=== PATIENT | female | born 1945 | race African-American/Black ===

== ENCOUNTER 2019-09-18 09:06 | Emergency (ER) | payer BC, MEDICAID, MEDICARE ==
[2019-09-18] MEDS ORDERED: Meclizine 25 MG Tab PO ONE (09:38)
[2019-09-18] MEDS ORDERED: Ondansetron 4 MG Tab.DIS PO ONE (09:38)
--- NOTE | 2019-09-18 10:34 | EDM.PDOC ---
ED HPI GENERAL MEDICAL PROBLEM - General Chief Complaint: General Stated Complaint: FAINTING LIGHTHEADED WEAK Time Seen by Provider: 09/18/19 09:10 Source of Information: Reports: Patient History Limitations: Reports: No Limitations - History of Present Illness INITIAL COMMENTS - FREE TEXT/NARRATIVE: Patient presented to the ED because of dizziness. She noticed that she gets dizzy when she stands. She is also feeling weak and tired most of the time. She had similar episode for the past year which resolved on it's own. - Related Data Allergies Allergy/AdvReac Type Severity Reaction Status Date / Time penicillin G Allergy Other Verified 09/18/19 10:24 Home Meds: Home Meds Meclizine HCl 25 mg PO Q6H PRN #30 tablet 09/18/19 [Rx] Past Medical History - Past Health History Medical/Surgical History: Denies Medical/Surgical History Social & Family History - Tobacco Use Smoking Status *Q: Never Smoker - Caffeine Use Caffeine Use: Reports: Coffee - Recreational Drug Use Recreational Drug Use: No ED ROS GENERAL - Review of Systems Review Of Systems: See Below Constitutional: Reports: No Symptoms HEENT: Reports: No Symptoms Respiratory: Reports: No Symptoms Cardiovascular: Reports: No Symptoms Endocrine: Reports: No Symptoms GI/Abdominal: Reports: No Symptoms : Reports: No Symptoms Musculoskeletal: Reports: No Symptoms Skin: Reports: No Symptoms Neurological: Reports: No Symptoms Psychiatric: Reports: No Symptoms Hematologic/Lymphatic: Reports: No Symptoms Immunologic: Reports: No Symptoms ED EXAM, GENERAL - Physical Exam Exam: See Below Exam Limited By: No Limitations General Appearance: Alert, No Apparent Distress Nose: Normal Inspection, Normal Mucosa Throat/Mouth: Normal Inspection, Normal Lips, Normal Teeth Head: Atraumatic, Normocephalic Neck: Normal Inspection, Supple, Non-Tender Respiratory/Chest: No Respiratory Distress, Lungs Clear, Normal Breath Sounds Cardiovascular: Normal Peripheral Pulses, Regular Rate, Rhythm, No Edema, No Gallop Back Exam: Normal Inspection, Full Range of Motion Extremities: Normal Inspection, Normal Range of Motion, Non-Tender, No Pedal Edema, Normal Capillary Refill Neurological: Alert, Oriented, CN II-XII Intact, Normal Cognition Psychiatric: Normal Affect, Normal Mood Skin Exam: Warm, Dry, Intact, Normal Color Lymphatic: No Adenopathy Course - Vital Signs Text/Narrative:: Labs/EKG was discussed with patient and verbalized full understanding Meclizine 50 mg PO x1 zofran 4 mg ODT x1 EKG-NSR Last Recorded V/S: Last Vital Signs Temp 36.7 C 09/18/19 10:30 Pulse 67 09/18/19 10:30 Resp 15 09/18/19 10:30 BP 164/95 H 09/18/19 10:30 Pulse Ox 99 09/18/19 10:30 - Orders/Labs/Meds Orders: Active Orders 24 hr Category Date Time Status EKG Documentation Completion [RC] ASDIRECTED Care 09/18/19 09:38 Active EKG 12 Lead [EK] Routine Ther 09/18/19 09:36 Ordered Labs: Laboratory Tests 09/18/19 09/18/19 09/18/19 Range/Units 09:55 09:55 09:55 WBC 7.9 (4.5-12.0) X10-3/uL RBC 5.14 (3.23-5.20) x10(6)uL Hgb 14.4 (11.5-15.5) g/dL Hct 42.9 (30.0-51.3) % MCV 83.4 (80-96) fL MCH 28.1 (27.7-33.6) pg MCHC 33.7 (32.2-35.4) g/dL RDW 13.0 (11.5-15.5) % Plt Count 233 (125-369) X10(3)uL MPV 7.7 (7.4-10.4) fL Add Manual Diff Yes Neutrophils % (Manual) 72 (46-82) % Lymphocytes % (Manual) 25 (13-37) % Monocytes % (Manual) 3 L (4-12) % Sodium 144 (135-145) mmol/L Potassium 4.9 (3.5-5.3) mmol/L Chloride 105 (100-110) mmol/L Carbon Dioxide 31 (21-32) mmol/L BUN 8 (7-18) mg/dL Creatinine 0.6 (0.55-1.02) mg/dL Est Cr Clr Drug Dosing 79.34 mL/min Estimated GFR (MDRD) > 60 (>60) BUN/Creatinine Ratio 13.3 (9-20) Glucose 95 (80-116) mg/dL Calcium 10.0 (8.6-10.2) mg/dL Troponin I < 0.017 L (<0.017-0.056) ng/mL Meds: Medications Discontinued Medications Generic Name Dose Route Start Last Admin Trade Name Armando PRN Reason Stop Dose Admin Meclizine HCl 50 mg 09/18/19 09:38 09/18/19 09:48 Antivert PO 09/18/19 09:39 50 mg ONETIME ONE Administration Ondansetron HCl 4 mg 09/18/19 09:38 09/18/19 09:48 Zofran Odt PO 09/18/19 09:39 4 mg ONETIME ONE Administration Departure - Departure Time of Disposition: 10:30 Disposition: Home, Self-Care 01 Condition: Good Clinical Impression: Vertigo - Discharge Information Prescriptions: Meclizine HCl 25 mg PO Q6H PRN #30 tablet PRN Reason: vertigo Instructions: Vertigo, [id number] Referrals: George Dee MD [Primary Care Provider] - Forms: ED Department Discharge Additional Instructions: please read discharge instructions on vertigo whenever you get up, do it slowly take meclizine 25 mg every 6 hours as needed for vertigo follow up with your field auditor-for a holter monitor and neurologist Sepsis Event Note - Evaluation Sepsis Screening Result: No Definite Risk - Focused Exam Vital Signs: Vital Signs Temp Pulse Resp BP Pulse Ox 09/18/19 10:30 36.7 C 67 15 164/95 H 99 09/18/19 09:06 36.7 C 70 15 179/88 H 100 Date Exam was Performed: 09/18/19 Time Exam was Performed: 15:53 - My Orders Last 24 Hours: My Active Orders 09/18/19 09:36 EKG 12 Lead [EK] Routine 09/18/19 09:38 EKG Documentation Completion [RC] ASDIRECTED - Assessment/Plan Last 24 Hours: My Active Orders 09/18/19 09:36 EKG 12 Lead [EK] Routine 09/18/19 09:38 EKG Documentation Completion [RC] ASDIRECTED
== END 2019-09-18 11:00 | disposition home or self-care (01) ==
LOC: FB.ED 09:06
DX: R42 Dizziness and giddiness (principal); Z88.0 Allergy status to penicillin
CPT/HCPCS: 36415; 80048; 84484; 85025; 93005; 93010; 99283; 99285; A9270

== ENCOUNTER 2020-09-23 08:56 | Emergency (ER) | payer MEDICARE ==
--- NOTE | 2020-09-23 09:55 | EDM.PDOC ---
ED HPI GENERAL MEDICAL PROBLEM - General Chief Complaint: General Stated Complaint: SOB AND DIAHREA Time Seen by Provider: 09/23/20 09:30 Source of Information: Reports: Patient History Limitations: Reports: No Limitations - History of Present Illness INITIAL COMMENTS - FREE TEXT/NARRATIVE: c/o weak and diarrhea 8d ago pt had sob at night, wheezing, said she could here her breath sounds breathing better altho still sob at times (PO 99% here) felt weak, "too tired to eat," will eat 1/2 of a meat pie and then is too tired to finish, will go sit in her chair to rest, says that here foot is good, just lacking energy denies lighthead/dizzy when on feet, altho walked very slowly to bathroom here no walker or can has soreness in her calves, no pain elsewhere, so swell of legs has had soft freq stool x 1w, usually formed, sometimes loose, BM x 3 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[employer], however she declined a tomorrow as she is too tired PCP Dr Dee has been drinking fluids, no caffeine - Related Data Allergies Allergy/AdvReac Type Severity Reaction Status Date / Time penicillin G Allergy Other Verified 09/18/19 10:24 Home Meds: Home Meds Meclizine HCl 25 mg PO Q6H PRN #30 tablet 09/18/19 [Rx] Past Medical History - Past Health History Medical/Surgical History: Denies Medical/Surgical History HEENT History: Reports: Impaired Vision Other HEENT History: right eye Genitourinary History: Reports: Urinary Incontinence - Past Surgical History Musculoskeletal Surgical History: Reports: Shoulder Surgery Other Musculoskeletal Surgeries/Procedures:: rotator cuff surgery Social & Family History - Tobacco Use Tobacco Use Status *Q: Never Tobacco User - Caffeine Use Caffeine Use: Reports: None - Recreational Drug Use Recreational Drug Use: No ED ROS GENERAL - Review of Systems Review Of Systems: See Below Constitutional: Reports: No Symptoms HEENT: Reports: No Symptoms Respiratory: Reports: Shortness of Breath. Denies: Cough, Sputum Cardiovascular: Reports: No Symptoms. Denies: Palpitations Endocrine: Reports: No Symptoms GI/Abdominal: Reports: Diarrhea. Denies: Abdominal Pain, Anorexia, Constipation, Nausea, Vomiting : Reports: No Symptoms Musculoskeletal: Reports: Leg Pain Skin: Reports: No Symptoms Neurological: Reports: No Symptoms Psychiatric: Reports: No Symptoms Hematologic/Lymphatic: Reports: No Symptoms Immunologic: Reports: No Symptoms ED EXAM, GENERAL - Physical Exam Exam: See Below Exam Limited By: No Limitations General Appearance: Alert, WD/WN, Other (nontoxic, nonill, appears weak, inc'd HR) Ears: Normal External Exam, Hearing Grossly Normal Nose: Normal Inspection, Normal Mucosa Throat/Mouth: Normal Inspection, Normal Voice, No Airway Compromise Head: Atraumatic, Normocephalic Neck: Normal Inspection, Supple, Non-Tender, Full Range of Motion. No: Lymphadenopathy (R), Lymphadenopathy (L) Respiratory/Chest: No Respiratory Distress, Lungs Clear, Normal Breath Sounds, Chest Non-Tender Cardiovascular: No Edema, No Gallop, No Murmur, Tachycardia, Other (regular) GI/Abdominal: Normal Bowel Sounds, Soft, Non-Tender, No Organomegaly, No Distention Back Exam: Normal Inspection, Full Range of Motion. No: CVA Tenderness (R), CVA Tenderness (L) Extremities: Normal Inspection, Normal Range of Motion, Other (mild tender calves b/l, no edema, no cords, no homans, mild dec'd turgor UEs, no tenting) Neurological: Alert, Oriented, CN II-XII Intact, Normal Cognition, No Motor/Sensory Deficits, Other (walked slowly with small steps, slightly wide based for balance) Psychiatric: Normal Affect, Normal Mood Skin Exam: Warm, Dry, Intact, Normal Color, No Rash Lymphatic: No Adenopathy Course - Vital Signs Last Recorded V/S: Last Vital Signs Temp 36.4 C 09/23/20 09:15 Pulse 110 H 09/23/20 11:33 Resp 18 09/23/20 09:15 BP 157/101 H 09/23/20 11:33 Pulse Ox 96 09/23/20 11:33 Orthostatic Blood Pressure [ 156/101 Standing] Orthostatic Blood Pressure [ 150/100 Sitting] Orthostatic Blood Pressure [ 165/104 Supine] - Orders/Labs/Meds Orders: Active Orders 24 hr Category Date Time Status EKG Documentation Completion [RC] ASDIRECTED Care 09/23/20 10:00 Ordered Orthostatic Vital Signs [RC] ASDIRECTED Care 09/23/20 10:01 Ordered COVID-19 SARS COV-2 AB, IGG Stat Lab 09/23/20 12:28 Ordered COVID-19 SARS COV-2 AB, IGM Stat Lab 09/23/20 12:28 Ordered EKG 12 Lead [EK] Routine Ther 09/23/20 09:58 Ordered Labs: Laboratory Tests 09/23/20 09/23/20 09/23/20 Range/Units 10:10 10:10 10:10 WBC 7.8 (3.0-10.3) x10-3/uL RBC 5.52 H (3.60-5.20) x10(6)uL Hgb 14.5 (11.4-15.5) g/dL Hct 45.3 (34.2-48.2) % MCV 82.0 (76.7-100.5) fL MCH 26.2 (23.9-33.9) pg MCHC 32.0 (31.9-34.8) g/dL RDW 14.3 (12.3-16.5) % Plt Count 377 (151-488) x10(3)uL MPV 7.5 (7.1-12.4) fL Neut % (Auto) 72.1 (30.8-76.2) % Lymph % (Auto) 20.7 (18.4-52.1) % [place] % (Auto) 6.1 (4.4-15.7) % Eos % (Auto) 0.3 L (0.6-8.1) % Baso % (Auto) 0.8 (0.2-1.5) % Neut # (Auto) 5.6 (1.5-6.3) x10-3/uL Lymph # (Auto) 1.6 (1.0-4.4) x10-3/uL [place] # (Auto) 0.5 (0.3-1.0) x10-3/uL Eos # (Auto) 0.0 (0.0-0.8) x10-3/uL Baso # (Auto) 0.1 (0.0-0.1) x10-3/uL D-Dimer, Quantitative 1.23 H (0.0-0.59) mg/LFEU Sodium 141 (135-145) mmol/L Potassium 3.6 D (3.5-5.3) mmol/L Chloride 101 (100-110) mmol/L Carbon Dioxide 29 (21-32) mmol/L BUN 10 (7-18) mg/dL Creatinine 0.9 (0.55-1.02) mg/dL Est Cr Clr Drug Dosing TNP Estimated GFR (MDRD) > 60 (>60) BUN/Creatinine Ratio 11.1 (9-20) Glucose 114 (80-116) mg/dL Lactic Acid (0.4-2.0) mmol/L Calcium 9.6 (8.6-10.2) mg/dL Magnesium (1.8-2.5) mg/dL Total Bilirubin 1.4 H (0.1-1.3) mg/dL AST 24 (5-25) IU/L ALT 15 (12-36) U/L Alkaline Phosphatase 113 H (56-112) IU/L Creatine Kinase 43 L (60-160) IU/L Troponin I (4.0-60.3) pg/mL C-Reactive Protein (0.5-0.9) mg/dL NT-Pro-B Natriuret Pep (<=125) pg/mL Total Protein 8.2 H (6.0-8.0) g/dL Albumin 4.4 (3.2-4.6) g/dL Globulin 3.8 g/dL Albumin/Globulin Ratio 1.2 Urine Color (YELLOW) Urine Appearance (CLEAR) Urine pH (5.0-6.5) Ur Specific [place] (1.010-1.025) Urine Protein (NEGATIVE) mg/dL Urine Glucose (UA) (NORMAL) mg/dL Urine Ketones (NEGATIVE) mg/dL Urine Occult Blood (NEGATIVE) Urine Nitrite (NEGATIVE) Urine Bilirubin (NEGATIVE) Urine Urobilinogen (NEGATIVE) mg/dL Ur Leukocyte Esterase (NEGATIVE) Urine WBC (0-5) Ur Squamous Epith Cells (NS,R,O) Urine Bacteria (NS) SARS-CoV-2 RNA (CESAR) (NEGATIVE) 09/23/20 09/23/20 09/23/20 Range/Units 10:10 10:10 10:10 WBC (3.0-10.3) x10-3/uL RBC (3.60-5.20) x10(6)uL Hgb (11.4-15.5) g/dL Hct (34.2-48.2) % MCV (76.7-100.5) fL MCH (23.9-33.9) pg MCHC (31.9-34.8) g/dL RDW (12.3-16.5) % Plt Count (151-488) x10(3)uL MPV (7.1-12.4) fL Neut % (Auto) (30.8-76.2) % Lymph % (Auto) (18.4-52.1) % [place] % (Auto) (4.4-15.7) % Eos % (Auto) (0.6-8.1) % Baso % (Auto) (0.2-1.5) % Neut # (Auto) (1.5-6.3) x10-3/uL Lymph # (Auto) (1.0-4.4) x10-3/uL [place] # (Auto) (0.3-1.0) x10-3/uL Eos # (Auto) (0.0-0.8) x10-3/uL Baso # (Auto) (0.0-0.1) x10-3/uL D-Dimer, Quantitative (0.0-0.59) mg/LFEU Sodium (135-145) mmol/L Potassium (3.5-5.3) mmol/L Chloride (100-110) mmol/L Carbon Dioxide (21-32) mmol/L BUN (7-18) mg/dL Creatinine (0.55-1.02) mg/dL Est Cr Clr Drug Dosing Estimated GFR (MDRD) (>60) BUN/Creatinine Ratio (9-20) Glucose (80-116) mg/dL Lactic Acid 1.1 (0.4-2.0) mmol/L Calcium (8.6-10.2) mg/dL Magnesium 1.9 (1.8-2.5) mg/dL Total Bilirubin (0.1-1.3) mg/dL AST (5-25) IU/L ALT (12-36) U/L Alkaline Phosphatase (56-112) IU/L Creatine Kinase (60-160) IU/L Troponin I 32.8 (4.0-60.3) pg/mL C-Reactive Protein 0.5 (0.5-0.9) mg/dL NT-Pro-B Natriuret Pep (<=125) pg/mL Total Protein (6.0-8.0) g/dL Albumin (3.2-4.6) g/dL Globulin g/dL Albumin/Globulin Ratio Urine Color (YELLOW) Urine Appearance (CLEAR) Urine pH (5.0-6.5) Ur Specific [place] (1.010-1.025) Urine Protein (NEGATIVE) mg/dL Urine Glucose (UA) (NORMAL) mg/dL Urine Ketones (NEGATIVE) mg/dL Urine Occult Blood (NEGATIVE) Urine Nitrite (NEGATIVE) Urine Bilirubin (NEGATIVE) Urine Urobilinogen (NEGATIVE) mg/dL Ur Leukocyte Esterase (NEGATIVE) Urine WBC (0-5) Ur Squamous Epith Cells (NS,R,O) Urine Bacteria (NS) SARS-CoV-2 RNA (CESAR) (NEGATIVE) 09/23/20 09/23/20 09/23/20 Range/Units 10:10 10:30 11:45 WBC (3.0-10.3) x10-3/uL RBC (3.60-5.20) x10(6)uL Hgb (11.4-15.5) g/dL Hct (34.2-48.2) % MCV (76.7-100.5) fL MCH (23.9-33.9) pg MCHC (31.9-34.8) g/dL RDW (12.3-16.5) % Plt Count (151-488) x10(3)uL MPV (7.1-12.4) fL Neut % (Auto) (30.8-76.2) % Lymph % (Auto) (18.4-52.1) % [place] % (Auto) (4.4-15.7) % Eos % (Auto) (0.6-8.1) % Baso % (Auto) (0.2-1.5) % Neut # (Auto) (1.5-6.3) x10-3/uL Lymph # (Auto) (1.0-4.4) x10-3/uL [place] # (Auto) (0.3-1.0) x10-3/uL Eos # (Auto) (0.0-0.8) x10-3/uL Baso # (Auto) (0.0-0.1) x10-3/uL D-Dimer, Quantitative (0.0-0.59) mg/LFEU Sodium (135-145) mmol/L Potassium (3.5-5.3) mmol/L Chloride (100-110) mmol/L Carbon Dioxide (21-32) mmol/L BUN (7-18) mg/dL Creatinine (0.55-1.02) mg/dL Est Cr Clr Drug Dosing Estimated GFR (MDRD) (>60) BUN/Creatinine Ratio (9-20) Glucose (80-116) mg/dL Lactic Acid (0.4-2.0) mmol/L Calcium (8.6-10.2) mg/dL Magnesium (1.8-2.5) mg/dL Total Bilirubin (0.1-1.3) mg/dL AST (5-25) IU/L ALT (12-36) U/L Alkaline Phosphatase (56-112) IU/L Creatine Kinase (60-160) IU/L Troponin I (4.0-60.3) pg/mL C-Reactive Protein (0.5-0.9) mg/dL NT-Pro-B Natriuret Pep 17496 H* (<=125) pg/mL Total Protein (6.0-8.0) g/dL Albumin (3.2-4.6) g/dL Globulin g/dL Albumin/Globulin Ratio Urine Color Yellow (YELLOW) Urine Appearance Clear (CLEAR) Urine pH 6.0 (5.0-6.5) Ur Specific [place] 1.010 (1.010-1.025) Urine Protein Negative (NEGATIVE) mg/dL Urine Glucose (UA) Normal (NORMAL) mg/dL Urine Ketones Negative (NEGATIVE) mg/dL Urine Occult Blood Negative (NEGATIVE) Urine Nitrite Negative (NEGATIVE) Urine Bilirubin Negative (NEGATIVE) Urine Urobilinogen Normal (NEGATIVE) mg/dL Ur Leukocyte Esterase Negative (NEGATIVE) Urine WBC 0-5 (0-5) Ur Squamous Epith Cells Occasional (NS,R,O) Urine Bacteria Few H (NS) SARS-CoV-2 RNA (CESAR) Negative (NEGATIVE) Meds: Medications Discontinued Medications Generic Name Dose Route Start Last Admin Trade Name Freq PRN Reason Stop Dose Admin Sodium Chloride 1,000 mls @ 999 mls/hr 09/23/20 10:00 09/23/20 10:39 Normal Saline IV 09/23/20 11:00 999 mls/hr .BOLUS ONE Administration Iopamidol 100 ml 09/23/20 11:53 09/23/20 12:05 Isovue-370 (76%) IV 09/23/20 11:54 100 ml . DIRECTED ONE Administration Iopamidol 75 ml 09/23/20 12:02 Isovue-370 (76%) IV 09/23/20 12:03 ONETIME ONE - Re-Assessments/Exams Free Text/Narrative Re-Assessment/Exam: 09/23/20 13:17 labs and imaging reviewed with pt and sig other Clemente (cell [phone]) who has known her for years and said he would try to stop the [facility] pus hosp later today d/w Dr Hernandez hospitalist at [facility] who accepted pt in transfer to their [facility], bed assignment pending, pt in agreement old EKG from 09-08-19 reviewed and d/w Dr Hernandez who was looking at a copy on his computer, there was a suggestion of possible early LVH (repolarization changes in V2) altho there is pronounced LVH with strain on today's EKG diff dx is extensive: includes COVID (Ab test test sent here, Dr Hernandez plans to do a more sensitive antigen test when she arrives), CAD, ischemic cardiomyopathy, other infections, pneumonia, COVID myocarditis, lung CA pt denies prior pul or CV hx, says the only time she might have had an NM is when she was alone at home, in bathroom, had n/v, passed out, awoke later on the bathroom floor, occurred about 1.5y ago, perhaps when the EKG was done in 08/31 there are no prior echos or CV w/u 09/23/20 13:26 never smoked daughter last year from sepsis, did not have heart or lung issues as far as pt knows pt's mother from a primary brain tumor pt is medically stable will add O2 for comfort, sxs and possible CAD pt did develop a slight nonproductive cough, had mild dyspnea sitting in chair will defer on diuretic as vazquez not indicated and pt is going to travel 50 minutes to [place] soon Departure - Departure Time of Disposition: 13:23 Disposition: DC/Tfer to Other 70 Condition: Good Clinical Impression: Heart failure, Bilateral pleural effusion, Bilateral pulmonary infiltrates on CXR, Dyspnea, Generalized weakness, Gait instability, Elevated d-dimer, Elevated total protein, Elevated brain natriuretic peptide (BNP) level, LVH (left ventricular hypertrophy) - Discharge Information *PRESCRIPTION DRUG MONITORING PROGRAM REVIEWED*: Not Applicable *COPY OF PRESCRIPTION DRUG MONITORING REPORT IN PATIENT SULEMA: Not Applicable Referrals: George Dee MD [Primary Care Provider] - Forms: ED Department Discharge Sepsis Event Note (ED) - Evaluation Sepsis Screening Result: No Definite Risk - Focused Exam Vital Signs: Vital Signs Temp Pulse Resp BP Pulse Ox 09/23/20 11:33 110 H 157/101 H 96 09/23/20 09:15 36.4 C 112 H 18 145/92 H 99 - My Orders Last 24 Hours: My Active Orders 09/23/20 09:58 EKG 12 Lead [EK] Routine 09/23/20 10:00 EKG Documentation Completion [RC] ASDIRECTED 09/23/20 10:01 Orthostatic Vital Signs [RC] ASDIRECTED 09/23/20 12:28 COVID-19 SARS COV-2 AB, IGG Stat COVID-19 SARS COV-2 AB, IGM Stat - Assessment/Plan Last 24 Hours: My Active Orders 09/23/20 09:58 EKG 12 Lead [EK] Routine 09/23/20 10:00 EKG Documentation Completion [RC] ASDIRECTED 09/23/20 10:01 Orthostatic Vital Signs [RC] ASDIRECTED 09/23/20 12:28 COVID-19 SARS COV-2 AB, IGG Stat COVID-19 SARS COV-2 AB, IGM Stat
[2020-09-23] MEDS ORDERED: Sodium Chloride 0.9% 1,000 ML IV ONE (10:00)
[2020-09-23] MEDS ORDERED: Iopamidol 755 Mg/ML 100 ML Bottle IV ONE (11:53)
[2020-09-23] MEDS ORDERED: Iopamidol 755 Mg/ML 75 ML Bottle IV ONE (12:02)
--- NOTE | 2020-09-23 12:06 | CR ---
INDICATION: Short of breath x1 week. CHEST ONE VIEW: An AP portable upright view of the chest was obtained 09/23/20 - no comparison. There is fairly extensive infiltration at the left lower lobe and also likely in the lingula with blunting of the costophrenic angle and obscuration of the left hemidiaphragm. Smaller amount of infiltrate is noted at the right lung base with blunting of the right costophrenic angle. The heart is enlarged in appearance with upper lung field pulmonary vasculature raising question of CHF. IMPRESSION: 1. Probable ASHD with cardiomegaly, CHF and possible interstitial lung edema. 2. Bibasilar pleuroparenchymal changes, left much greater than right which may be on the basis of pneumonia and pleuritis. Report was called to Dr. Way at 1137 hours. [facility]
--- NOTE | 2020-09-23 12:41 | CT ---
INDICATION: Short of breath, weak, increased D-dimer. CBC, CRP, COVID all negative. COMPUTERIZED TOMOGRAPHY ANGIOGRAPHY OF THE CHEST WITH CONTRAST: Spiral 1.25 mm axial sections were obtained through the chest with 75 mL Isovue-370 at 3 cc per second with sagittal and coronal reconstructions and axial reconstructions 09/23/20 - no comparisons. Total exam DLP was 318.83 mGy-cm. There appears to be a partially calcified mass at the lower pole posteriorly of the left lobe of the thyroid, etiology indeterminate. It extends into the thoracic inlet slightly. Otherwise no mediastinal mass was identified. Minimal coronary artery calcifications noted. The heart appears enlarged. No pericardial effusion was seen. Bilateral pleural effusions are noted, larger on the left with parenchymal changes, either atelectatic or pneumonic in origin - cannot exclude pneumonia or even neoplasia. The upper abdomen included on this study showed no evidence of ascites. IMPRESSION: 1. No definite evidence of PE. 2. Bibasilar pleuroparenchymal changes, left greater than right, pneumonia versus neoplasia - some atelectasis could be present - correlate clinically. 3. ASHD, cardiomegaly, probable CHF and interstitial lung edema. Report was called to Dr. Way at 1225 hours 09/23/20. [facility]
[2020-09-24 12:10] LABS: SARS COV-2 IGG AB Negative (Negative)
[2020-09-25 21:11] LABS: SARS COV-2 IGM AB Negative (Negative)
== END 2020-09-23 15:29 | disposition other institution (70) ==
LOC: FB.ED 08:56
DX: I50.9 Heart failure, unspecified (principal); J90 Pleural effusion, not elsewhere classified; R91.8 Other nonspecific abnormal finding of lung field; R26.9 Unspecified abnormalities of gait and mobility; R79.1 Abnormal coagulation profile; R79.89 Other specified abnormal findings of blood chemistry; I51.7 Cardiomegaly; Z88.0 Allergy status to penicillin
CPT/HCPCS: 36415; 71045; 71275; 80053; 81001; 82550; 83605; 83735; 83880; 84484; 85025; 85379; 86140; 86769; 93005; 99285; J7030; Q9967; U0002

== ENCOUNTER 2021-03-31 10:16 | Emergency (ER) | payer MEDICARE ==
--- NOTE | 2021-03-31 10:29 | EDM.PDOC ---
ED HPI GENERAL MEDICAL PROBLEM - General Stated Complaint: GTUBE LEAKAGE Time Seen by Provider: 03/31/21 10:27 Source of Information: Reports: Patient, Senior Care Records, RN (From [facility]) History Limitations: Reports: Altered Mental Status (Patient with previous stroke and cannot provide me with a laceration. She speaks in 1-2 word sentences and areas is mostly yes and no.) - History of Present Illness INITIAL COMMENTS - FREE TEXT/NARRATIVE: 75-year-old female who presents to the emergency department via POV from [facility] secondary to G-tube having gastric contents leaking around it. The patient tells me she has no pain. She states she has been having no difficulty breathing. She is aware that she is at [place] and her G-tube site has been leaking. She cannot really tell me any other formation. I did speak with Sarah, are in a [facility], and she tells me that for about the past few weeks, the patient has had intermittent episodes of vomiting of feeding tube contents. The patient apparently gets feedings through her G-tube at 55 mL per hour continuously and this weekend she did have an episode of vomiting in the had hold her tube feedings a few hours before restarting them and apparently this has happened since she has had the G-tube in several times but has always resolved. Patient is been having normal bowel movements. She really takes nothing orally. The patient did have a stroke that required her to be placed in the correction and in November 2020, she had had failure to thrive secondary to not being able to take by mouth and not really wanting to take by mouth and she had a G-tube placed on 11/26/2020. The G-tube has not been replaced since it was initially placed. The nurse also tells me that the patient has intermittent episodes of tachycardia and this has been her norm while she has been in the correction with pulse rates between 70 and 120 beats per minute. This weekend, there have been no reported fevers. The G-tube site did have some greenish-type drainage yesterday and then today it was noted by the nurse that there were G-tube contents around the G-tube that were leaking out. The patient did not appear to have any pain with palpation around the area and did appear to be intact. The patient is being sent to feeding leaking around the G-tube site. This is really only history that I can obtain. There are no other associated signs or symptoms known. There are no other modifying factors known. 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: Other (see below) (Nothing.) - Related Data Allergies Allergy/AdvReac Type Severity Reaction Status Date / Time penicillin G Allergy Other Verified 09/18/19 10:24 Home Meds: Home Meds Acetaminophen with Codeine [Acetaminophen-Cod #3] 1 each PO QID 03/31/21 [History] Bisacodyl [Laxative Suppository] 10 mg RECTAL DAILY PRN 03/31/21 [History] Ciprofloxacin 500 mg GTUBE BID 10 Days #100 ml 03/31/21 [Rx] Docusate Sodium 100 mg GTUBE DAILY 03/31/21 [History] Furosemide 20 mg PO ASDIRECTED 03/31/21 [History] Furosemide 40 mg GTUBE ASDIRECTED 03/31/21 [History] Gabapentin 300 mg GTUBE TID 03/31/21 [History] Mag Hydrox/Aluminum Hyd/Simeth [Lian-Lanta Liquid] 10 ml PO ASDIRECTED PRN 03/31/21 [History] Menthol/Methyl Salicylate [Icy Hot] 1 dose TOP DAILY 03/31/21 [History] Nut.tx.gluc Intol,Lf,Soy/Fiber [Glucerna 1.2 Jose De Jesus Liquid] 55 ml GTUBE DAILY 03/31/21 [History] Warfarin [Coumadin] 1 tab PO DAILY 03/31/21 [History] atorvaSTATin [Lipitor] 40 mg GTUBE DAILY 03/31/21 [History] carvediloL [Carvedilol] 6.25 mg GTUBE BEDTIME 03/31/21 [History] carvediloL [Carvedilol] 12.5 mg GTUBE DAILY 03/31/21 [History] metFORMIN [Glucophage] 500 mg GTUBE DAILY 03/31/21 [History] polyethylene glycoL 3350 [MiraLAX] 17 gm GTUBE DAILY PRN 03/31/21 [History] ramipriL [Ramipril] 2.5 mg GTUBE DAILY 03/31/21 [History] Past Medical History HEENT History: Reports: Impaired Vision Other HEENT History: right eye Cardiovascular History: Reports: Heart Failure, High Cholesterol, Hypertension Genitourinary History: Reports: Urinary Incontinence Neurological History: Reports: CVA Endocrine/Metabolic History: Reports: Diabetes, Type II - Past Surgical History GI Surgical History: Reports: Other (See Below) (G-tube) Musculoskeletal Surgical History: Reports: Shoulder Surgery Other Musculoskeletal Surgeries/Procedures:: rotator cuff surgery Social & Family History - Tobacco Use Tobacco Use Status *Q: Unknown Ever Used Tobacco (Nonsmoker) - Caffeine Use Caffeine Use: Reports: None - Living Situation & Occupation Living situation: Reports: Extended Care Facility ([facility]) ED ROS GENERAL - Review of Systems Review Of Systems: Unable To Obtain Reason Not Obtained: Patient cannot provide secondary to previous stroke ED EXAM, GENERAL - Physical Exam Exam: See Below Exam Limited By: No Limitations General Appearance: No Apparent Distress (Nontoxic appearing), Other (Eyes are closed but responds to verbal stimuli. Speaks in 2-3 word sentences and answers yes and no) Eye Exam: Bilateral Eye: Normal Inspection (Sclera are anicteric) Ears: Normal External Exam Ear Exam: Bilateral Ear: Auricle Normal Nose: Normal Inspection, Normal Mucosa, No Blood Throat/Mouth: Normal Voice, No Airway Compromise, Other (Moist membranes) Head: Atraumatic, Normocephalic Neck: Normal Inspection, Supple, Non-Tender, Full Range of Motion Respiratory/Chest: No Respiratory Distress, Lungs Clear, Normal Breath Sounds, No Accessory Muscle Use, Chest Non-Tender. No: Crackles, Rales, Rhonchi, Wheezing Cardiovascular: Normal Peripheral Pulses, Regular Rate, Rhythm, No Murmur Peripheral Pulses: 2+: Radial (L), Radial (R) GI/Abdominal: Normal Bowel Sounds, Soft, Non-Tender, No Mass Back Exam: Normal Inspection Extremities: Normal Inspection, Normal Range of Motion, No Pedal Edema, Normal Capillary Refill Neurological: Inattentive, Other (Has some dysphasia. I am told that this is her baseline.) Psychiatric: Flat Affect Skin Exam: Warm, Dry, Intact, Normal Color, No Rash #1 Interpretation EKG Date: 03/31/21 Time: 11:35 Rhythm: NSR Rate (Beats/Min): 97 [place]: LAD-Left [place] Deviation P-Wave: Present QRS: Other (LVH. Previous inferior [place]) ST-T: Other (Repolarization abnormality secondary to LVH.) QT: Normal Course - Vital Signs Last Recorded V/S: Last Vital Signs Temp 37.6 C 03/31/21 10:16 Pulse 95 03/31/21 10:16 Resp 18 03/31/21 10:16 BP 108/64 03/31/21 10:16 Pulse Ox 97 03/31/21 10:16 - Orders/Labs/Meds Orders: Active Orders 24 hr Category Date Time Status Insert Urinary Catheter [OM.PC] Q24H Care 03/31/21 11:00 Ordered Abdomen 1V Flat [CR] Stat Exams 03/31/21 10:45 Taken Chest 1V Frontal [CR] Stat Exams 03/31/21 10:45 Taken CULTURE URINE [RM] Stat Lab 03/31/21 12:20 Received EKG 12 Lead [EK] Routine Ther 03/31/21 10:45 Ordered Labs: Laboratory Tests 03/31/21 03/31/21 03/31/21 Range/Units 11:20 11:20 11:20 WBC 7.6 (3.0-10.3) x10-3/uL RBC 4.38 (3.60-5.20) x10(6)uL Hgb 11.5 D (11.4-15.5) g/dL Hct 37.1 (34.2-48.2) % MCV 84.6 (76.7-100.5) fL MCH 26.3 (23.9-33.9) pg MCHC 31.1 L (31.9-34.8) g/dL RDW 16.6 H (12.3-16.5) % Plt Count 535 H (151-488) x10(3)uL MPV 7.6 (7.1-12.4) fL Neut % (Auto) 74.1 (30.8-76.2) % Lymph % (Auto) 17.3 L (18.4-52.1) % [place] % (Auto) 6.8 (4.4-15.7) % Eos % (Auto) 1.1 (0.6-8.1) % Baso % (Auto) 0.7 (0.2-1.5) % Neut # (Auto) 5.6 (1.5-6.3) x10-3/uL Lymph # (Auto) 1.3 (1.0-4.4) x10-3/uL [place] # (Auto) 0.5 (0.3-1.0) x10-3/uL Eos # (Auto) 0.1 (0.0-0.8) x10-3/uL Baso # (Auto) 0.0 (0.0-0.1) x10-3/uL PT (9.0-11.1) sec INR (1.00-1.24) Sodium 142 (135-145) mmol/L Potassium 3.8 (3.5-5.3) mmol/L Chloride 100 (100-110) mmol/L Carbon Dioxide 32 (21-32) mmol/L BUN 22 H D (7-18) mg/dL Creatinine 0.6 (0.55-1.02) mg/dL Est Cr Clr Drug Dosing TNP Estimated GFR (MDRD) > 60 (>60) BUN/Creatinine Ratio 36.7 H (9-20) Glucose 145 H (80-116) mg/dL Calcium 9.8 (8.6-10.2) mg/dL Magnesium 2.1 (1.8-2.5) mg/dL Total Bilirubin 0.9 (0.1-1.3) mg/dL AST 26 H (5-25) IU/L ALT 18 D (12-36) U/L Alkaline Phosphatase 106 (56-112) IU/L Troponin I 14.0 (4.0-60.3) pg/mL C-Reactive Protein 1.4 H (0.5-0.9) mg/dL Total Protein 7.5 (6.0-8.0) g/dL Albumin 2.7 L (3.2-4.6) g/dL Globulin 4.8 g/dL Albumin/Globulin Ratio 0.6 Urine Color (YELLOW) Urine Appearance (CLEAR) Urine pH (5.0-6.5) Ur Specific [place] (1.010-1.025) Urine Protein (NEGATIVE) mg/dL Urine Glucose (UA) (NORMAL) mg/dL Urine Ketones (NEGATIVE) mg/dL Urine Occult Blood (NEGATIVE) Urine Nitrite (NEGATIVE) Urine Bilirubin (NEGATIVE) Urine Urobilinogen (NEGATIVE) mg/dL Ur Leukocyte Esterase (NEGATIVE) Urine RBC (0-5) Urine WBC (0-5) Ur Squamous Epith Cells (NS,R,O) Urine Bacteria (NS) 03/31/21 03/31/21 Range/Units 11:20 12:20 WBC (3.0-10.3) x10-3/uL RBC (3.60-5.20) x10(6)uL Hgb (11.4-15.5) g/dL Hct (34.2-48.2) % MCV (76.7-100.5) fL MCH (23.9-33.9) pg MCHC (31.9-34.8) g/dL RDW (12.3-16.5) % Plt Count (151-488) x10(3)uL MPV (7.1-12.4) fL Neut % (Auto) (30.8-76.2) % Lymph % (Auto) (18.4-52.1) % [place] % (Auto) (4.4-15.7) % Eos % (Auto) (0.6-8.1) % Baso % (Auto) (0.2-1.5) % Neut # (Auto) (1.5-6.3) x10-3/uL Lymph # (Auto) (1.0-4.4) x10-3/uL [place] # (Auto) (0.3-1.0) x10-3/uL Eos # (Auto) (0.0-0.8) x10-3/uL Baso # (Auto) (0.0-0.1) x10-3/uL PT 22.4 H (9.0-11.1) sec INR 2.18 H (1.00-1.24) Sodium (135-145) mmol/L Potassium (3.5-5.3) mmol/L Chloride (100-110) mmol/L Carbon Dioxide (21-32) mmol/L BUN (7-18) mg/dL Creatinine (0.55-1.02) mg/dL Est Cr Clr Drug Dosing Estimated GFR (MDRD) (>60) BUN/Creatinine Ratio (9-20) Glucose (80-116) mg/dL Calcium (8.6-10.2) mg/dL Magnesium (1.8-2.5) mg/dL Total Bilirubin (0.1-1.3) mg/dL AST (5-25) IU/L ALT (12-36) U/L Alkaline Phosphatase (56-112) IU/L Troponin I (4.0-60.3) pg/mL C-Reactive Protein (0.5-0.9) mg/dL Total Protein (6.0-8.0) g/dL Albumin (3.2-4.6) g/dL Globulin g/dL Albumin/Globulin Ratio Urine Color Yellow (YELLOW) Urine Appearance Slightly cloudy (CLEAR) Urine pH 7.0 H (5.0-6.5) Ur Specific [place] 1.010 (1.010-1.025) Urine Protein Negative (NEGATIVE) mg/dL Urine Glucose (UA) Normal (NORMAL) mg/dL Urine Ketones Negative (NEGATIVE) mg/dL Urine Occult Blood Negative (NEGATIVE) Urine Nitrite Positive H (NEGATIVE) Urine Bilirubin Negative (NEGATIVE) Urine Urobilinogen Normal (NEGATIVE) mg/dL Ur Leukocyte Esterase Negative (NEGATIVE) Urine RBC 0-5 (0-5) Urine WBC 0-5 (0-5) Ur Squamous Epith Cells Rare (NS,R,O) Urine Bacteria Many H (NS) Meds: Medications Discontinued Medications Generic Name Dose Route Start Last Admin Trade Name Freq PRN Reason Stop Dose Admin Ciprofloxacin 500 mg 03/31/21 13:55 03/31/21 14:30 Ciprofloxacin 500 Mg Tab GTUBE 03/31/21 13:56 500 mg ONETIME ONE Administration - Radiology Interpretation Free Text/Narrative:: Chest x-ray shows pulmonary vascular prominence. There is mild atelectasis in the left base. This was per the [facility] radiologist. KUB showed more bowel obstruction but a large amount of stool within the rectum. This was per the [facility] radiologist. - Re-Assessments/Exams Free Text/Narrative Re-Assessment/Exam: 03/31/21 12:02: The white blood cell count was 7.6. The hemoglobin was 11.5. The platelet count was 535K. The steroid for propofol was normal. The BUN was 22 and the creatinine was 0.6. The glucose is 145. The LFTs were normal. The troponin was normal. The chest x-ray showed no definite pneumonia. The abdominal x-ray showed no evidence of bowel obstruction. There was a lot of stool in the rectum. The patient has remained hemodynamically stable with no distress I am awaiting the results of the urinalysis. 03/31/21 13:50: The patient's urine has come back and it does appear that she has a UTI. She also appears to have constipation and a good amount of stool in her rectum. She has remained hemodynamically and respiratory stable while here. Her G-tube appears to be functioning normally and there is no evidence of obstruction on her x-ray. There is also no evidence of pneumonia on her x-ray. I called and gave all of this information to the nurse at the correction I will be sending somebody to pick her up to take her back to the correction as she is stable for discharge. I will place patient on Cipro 500 mg per G-tube twice daily for the next 10 days and I will give her her first dose now. They will need to work on getting the stool out of her rectum through a bowel regimen through her primary provider. Departure - Departure Time of Disposition: 14:20 Disposition: DC/Tfer to [facility] 03 Condition: Fair (Stable.) Clinical Impression: Fecal impaction in rectum UTI (urinary tract infection) Qualifiers: Urinary tract infection type: site unspecified Hematuria presence: without hematuria Qualified Code(s): N39.0 - Urinary tract infection, site not specified Constipation Qualifiers: Constipation type: unspecified constipation type Qualified Code(s): K59.00 - Co nstipation, unspecified - Discharge Information Prescriptions: Ciprofloxacin 500 mg GTUBE BID 10 Days #100 ml Instructions: Constipation, Adult, [id number], Urinary Tract Infection, Adult, [id number] Referrals: George Dee MD [Primary Care Provider] - Forms: ED Department Discharge Additional Instructions: The patient's blood tests were reassuringly normal or unchanged from previous. Her INR was 2.18. Her urine showed some evidence of infection. We did send this for culture. Her chest x-ray showed no pneumonia. An abdominal x-ray showed a large amount of stool in the rectum but no evidence of bowel obstruction. The G- tube appeared to be functioning normally. I am placing the patient on ciprofloxacin 500 mg twice daily by G-tube. She will also need to get her constipation cleared at the correction. Back to the emergency department for high fever, unrelenting vomiting, not tolerating tube feeds, change in mental her neuro status or any other concerning signs or symptoms. Sepsis Event Note (ED) - Focused Exam Vital Signs: Vital Signs Temp Pulse Resp BP Pulse Ox 03/31/21 10:16 37.6 C 95 18 108/64 97 - My Orders Last 24 Hours: My Active Orders 03/31/21 10:45 Abdomen 1V Flat [CR] Stat Chest 1V Frontal [CR] Stat EKG 12 Lead [EK] Routine 03/31/21 11:00 Insert Urinary Catheter [OM.PC] Q24H 03/31/21 12:20 CULTURE URINE [RM] Stat - Assessment/Plan Last 24 Hours: My Active Orders 03/31/21 10:45 Abdomen 1V Flat [CR] Stat Chest 1V Frontal [CR] Stat EKG 12 Lead [EK] Routine 03/31/21 11:00 Insert Urinary Catheter [OM.PC] Q24H 03/31/21 12:20 CULTURE URINE [RM] Stat
[2021-03-31] MEDS ORDERED: Ciprofloxacin 500 MG Tab GTUBE ONE (13:55)
== END 2021-03-31 14:40 ==
LOC: FB.ED 10:16
DX: K56.41 Fecal impaction (principal); N39.0 Urinary tract infection, site not specified; I11.0 Hypertensive heart disease with heart failure; I50.9 Heart failure, unspecified; E78.00 Pure hypercholesterolemia, unspecified; Z88.0 Allergy status to penicillin; Z79.84 Long term (current) use of oral hypoglycemic drugs; Z79.899 Other long term (current) drug therapy; Z79.01 Long term (current) use of anticoagulants
CPT/HCPCS: 36415; 71045; 74018; 80053; 81001; 83735; 84484; 85025; 85610; 86140; 87086; 87088; 87186; 93005; 99284-25; A9270-GY

== ENCOUNTER 2021-04-01 17:02 | Emergency (ER) | payer MEDICARE ==
--- NOTE | 2021-04-01 19:26 | EDM.PDOC ---
ED HPI GENERAL MEDICAL PROBLEM - General Chief Complaint: Gastrointestinal Problem Stated Complaint: G TUBE FELL OUT Time Seen by Provider: 04/01/21 18:30 Source of Information: Reports: Care Home Records History Limitations: Reports: Altered Mental Status - History of Present Illness INITIAL COMMENTS - FREE TEXT/NARRATIVE: c/o dislodged g-tube pt dislodged her 16-Fr g-tube, however only a 20-Fr g-tube could be located in either ED or OR suite a 16-Fr vazquez was easily passed through opening without resistance or difficulty on first pass, 20 ml air inflated into balloon, normal prieto of air heard which was introduced without difficulty through Vazquez d/w Dr Hairston who will not be in town until Wednesday (2d from now), he advised continuing to do feeds through vazquez until he could replace g-tube - Related Data Allergies Allergy/AdvReac Type Severity Reaction Status Date / Time penicillin G Allergy Other Verified 04/01/21 17:35 tramadol Allergy Other Verified 04/01/21 17:35 Home Meds: Home Meds Acetaminophen with Codeine [Acetaminophen-Cod #3] 1 each PO QID 03/31/21 [History] Bisacodyl [Laxative Suppository] 10 mg RECTAL DAILY PRN 03/31/21 [History] Ciprofloxacin 500 mg GTUBE BID 10 Days #100 ml 03/31/21 [Rx] Docusate Sodium 100 mg GTUBE DAILY 03/31/21 [History] Furosemide 20 mg PO ASDIRECTED 03/31/21 [History] Furosemide 40 mg GTUBE ASDIRECTED 03/31/21 [History] Gabapentin 300 mg GTUBE TID 03/31/21 [History] Mag Hydrox/Aluminum Hyd/Simeth [Lian-Lanta Liquid] 10 ml PO ASDIRECTED PRN 03/31/21 [History] Menthol/Methyl Salicylate [Icy Hot] 1 dose TOP DAILY 03/31/21 [History] Nut.tx.gluc Intol,Lf,Soy/Fiber [Glucerna 1.2 Jose De Jesus Liquid] 55 ml GTUBE DAILY 03/31/21 [History] Warfarin [Coumadin] 1 tab PO DAILY 03/31/21 [History] atorvaSTATin [Lipitor] 40 mg GTUBE DAILY 03/31/21 [History] carvediloL [Carvedilol] 6.25 mg GTUBE BEDTIME 03/31/21 [History] carvediloL [Carvedilol] 12.5 mg GTUBE DAILY 03/31/21 [History] metFORMIN [Glucophage] 500 mg GTUBE DAILY 03/31/21 [History] polyethylene glycoL 3350 [MiraLAX] 17 gm GTUBE DAILY PRN 03/31/21 [History] ramipriL [Ramipril] 2.5 mg GTUBE DAILY 03/31/21 [History] Past Medical History - Past Health History Medical/Surgical History: Denies Medical/Surgical History HEENT History: Reports: Impaired Vision Other HEENT History: right eye Cardiovascular History: Reports: Heart Failure, High Cholesterol, Hypertension Genitourinary History: Reports: Urinary Incontinence Neurological History: Reports: CVA Endocrine/Metabolic History: Reports: Diabetes, Type II - Past Surgical History GI Surgical History: Reports: Other (See Below) (G-tube) Social & Family History - Family History Family Medical History: No Pertinent Family History - Caffeine Use Caffeine Use: Reports: None - Living Situation & Occupation Living situation: Reports: Extended Care Facility ([facility]) ED ROS GENERAL - Review of Systems Review Of Systems: See Below Constitutional: Reports: No Symptoms HEENT: Reports: No Symptoms Respiratory: Reports: No Symptoms Cardiovascular: Reports: No Symptoms Endocrine: Reports: No Symptoms GI/Abdominal: Reports: No Symptoms : Reports: No Symptoms Musculoskeletal: Reports: No Symptoms Skin: Reports: No Symptoms Neurological: Reports: No Symptoms Psychiatric: Reports: No Symptoms Hematologic/Lymphatic: Reports: No Symptoms Immunologic: Reports: No Symptoms ED EXAM, GI/ABD - Physical Exam Exam: See Below General Appearance: Alert, WD/WN, No Apparent Distress, Other (nonverbal, resting comfortably) Ears: Hearing Grossly Normal Nose: Normal Inspection Throat/Mouth: Normal Inspection Head: Atraumatic Neck: Normal Inspection, Supple Respiratory/Chest: No Respiratory Distress, Lungs Clear Cardiovascular: Regular Rate, Rhythm GI/Abdominal Exam: Normal Bowel Sounds, Soft, Non-Tender, No Distention, Other (16-Fr vazquez placed as per HPI, tolerated well, no grimace ) Back Exam: Normal Inspection Extremities: Normal Inspection, Normal Range of Motion, Non-Tender, No Pedal Edema Neurological: Alert Psychiatric: Normal Affect Skin Exam: Warm, Dry, Intact, Normal Color, No Rash Lymphatic: No Adenopathy Comments: gastric secretions noting to back up through vazquez after it was placed, a plug was placed on the end to prevent leakage, tube tape in place to abd wall Course - Vital Signs Last Recorded V/S: Last Vital Signs Temp 36.4 C 04/01/21 17:05 Pulse 99 04/01/21 17:05 Resp 20 04/01/21 17:05 BP 107/61 04/01/21 17:05 Pulse Ox 100 04/01/21 17:05 Departure - Departure Time of Disposition: 19:21 Disposition: DC/Tfer to [facility] Condition: Good Clinical Impression: Dislodged gastrostomy tube - Discharge Information *PRESCRIPTION DRUG MONITORING PROGRAM REVIEWED*: Not Applicable *COPY OF PRESCRIPTION DRUG MONITORING REPORT IN PATIENT SULEMA: Not Applicable Referrals: George Dee MD [Primary Care Provider] - Additional Instructions: No 16-Polish gastrostomy feeding tube in stock in hospital. A 16-Polish vazquez was placed instead with 20 ml air in balloon. Use vazquez for feeds for now. Continue usual feeds. Surgery team will order a 16-Polish gastrostomy feeding tube in morning. Patient to see Dr Hairston in 2 days on Wednesday to remove 16-Polish vazquez and to replace it with 16-Polish gastrostomy feeding tube. Sepsis Event Note (ED) - Evaluation Sepsis Screening Result: No Definite Risk - Focused Exam Vital Signs: Vital Signs Temp Pulse Resp BP Pulse Ox 04/01/21 17:05 36.4 C 99 20 107/61 100
== END 2021-04-01 20:05 ==
LOC: FB.ED 17:02
DX: Z43.1 Encounter for attention to gastrostomy (principal); I11.0 Hypertensive heart disease with heart failure; I50.9 Heart failure, unspecified; E78.00 Pure hypercholesterolemia, unspecified; E11.9 Type 2 diabetes mellitus without complications; Z88.0 Allergy status to penicillin; Z88.5 Allergy status to narcotic agent; Z79.01 Long term (current) use of anticoagulants; Z79.84 Long term (current) use of oral hypoglycemic drugs; Z79.899 Other long term (current) drug therapy
CPT/HCPCS: 43762; 99282-25

== ENCOUNTER 2021-04-03 06:39 | Emergency (ER) | payer MEDICARE ==
--- NOTE | 2021-04-03 07:12 | EDM.PDOC ---
ED HPI GENERAL MEDICAL PROBLEM - General Chief Complaint: General Stated Complaint: G Tube out Time Seen by Provider: 04/03/21 07:00 Source of Information: Reports: Patient History Limitations: Reports: No Limitations - History of Present Illness INITIAL COMMENTS - FREE TEXT/NARRATIVE: c/o dislodged feeding tube pt pulled out 16-Fr G-tube 2d ago which was replaced here in ED by myself without difficulty with a 16-Fr vazquez and 20 ml air inserted in the balloon the replacement 16-Fr G-tube has not yet arrived pt was found in room during the night with the tube out and lying on the bed - Related Data Allergies Allergy/AdvReac Type Severity Reaction Status Date / Time bee venom protein (honey bee) Allergy Cannot Verified 04/03/21 06:50 Remember penicillin G Allergy Other Verified 04/01/21 17:35 pollen extracts Allergy Cannot Verified 04/03/21 06:50 Remember tramadol Allergy Other Verified 04/01/21 17:35 Home Meds: Home Meds Acetaminophen with Codeine [Acetaminophen-Cod #3] 1 each PO QID 03/31/21 [History] Bisacodyl [Laxative Suppository] 10 mg RECTAL DAILY PRN 03/31/21 [History] Ciprofloxacin 500 mg GTUBE BID 10 Days #100 ml 03/31/21 [Rx] Docusate Sodium 100 mg GTUBE DAILY 03/31/21 [History] Furosemide 20 mg PO Q48H 03/31/21 [History] Furosemide 40 mg GTUBE Q48H 03/31/21 [History] Gabapentin 300 mg GTUBE TID 03/31/21 [History] Mag Hydrox/Aluminum Hyd/Simeth [Lian-Lanta Liquid] 10 ml PO ASDIRECTED PRN 03/31/21 [History] Menthol/Methyl Salicylate [Icy Hot] 1 dose TOP DAILY 03/31/21 [History] Nut.tx.gluc Intol,Lf,Soy/Fiber [Glucerna 1.2 Jose De Jesus Liquid] 55 ml GTUBE DAILY 03/31/21 [History] Warfarin [Coumadin] 1 tab PO DAILY 03/31/21 [History] atorvaSTATin [Lipitor] 40 mg GTUBE DAILY 03/31/21 [History] carvediloL [Carvedilol] 6.25 mg GTUBE BEDTIME 03/31/21 [History] carvediloL [Carvedilol] 12.5 mg GTUBE DAILY 03/31/21 [History] metFORMIN [Glucophage] 500 mg GTUBE DAILY 03/31/21 [History] polyethylene glycoL 3350 [MiraLAX] 17 gm GTUBE DAILY PRN 03/31/21 [History] ramipriL [Ramipril] 2.5 mg GTUBE DAILY 03/31/21 [History] Past Medical History - Past Health History Medical/Surgical History: Denies Medical/Surgical History HEENT History: Reports: Impaired Vision Other HEENT History: right eye Cardiovascular History: Reports: Heart Failure, High Cholesterol, Hypertension Gastrointestinal History: Reports: Other (See Below) Other Gastrointestinal History: Difficulty swallowing. PEG tube in place. Genitourinary History: Reports: Urinary Incontinence Neurological History: Reports: CVA Endocrine/Metabolic History: Reports: Diabetes, Type II - Past Surgical History GI Surgical History: Reports: Other (See Below) (G-tube) Social & Family History - Family History Family Medical History: No Pertinent Family History - Caffeine Use Caffeine Use: Reports: None - Living Situation & Occupation Living situation: Reports: Extended Care Facility ([facility]) ED ROS GENERAL - Review of Systems Review Of Systems: See Below Constitutional: Reports: No Symptoms HEENT: Reports: No Symptoms Respiratory: Reports: No Symptoms Cardiovascular: Reports: No Symptoms Endocrine: Reports: No Symptoms GI/Abdominal: Reports: No Symptoms : Reports: No Symptoms Musculoskeletal: Reports: No Symptoms Skin: Reports: No Symptoms Neurological: Reports: No Symptoms Psychiatric: Reports: No Symptoms Hematologic/Lymphatic: Reports: No Symptoms Immunologic: Reports: No Symptoms ED EXAM, GENERAL - Physical Exam Exam: See Below Exam Limited By: No Limitations General Appearance: Alert, WD/WN, No Apparent Distress, Other (conversant, denies pain, alert, makers eye contact) GI/Abdominal: Other (with petroleum lubricant a 16-Fr vazquez was placed easily without resistance, a 30 ml balloon was filled with 20 ml NS, gastric contents refluxed up into the tube, good air rushes heard when several ml air injected through port) Course - Vital Signs Last Recorded V/S: Last Vital Signs Temp 36.7 C 04/03/21 06:47 Pulse 95 04/03/21 06:47 Resp 15 04/03/21 06:47 BP 128/79 04/03/21 06:47 Pulse Ox - Re-Assessments/Exams Free Text/Narrative Re-Assessment/Exam: 04/03/21 07:25 tube should not be causing discomfort, pt with limited mobility yet can move hands, suspect pt is looping arm under the tube which has the free end attached to the feeding bag, additional precautions requested from the [facility] Departure - Departure Time of Disposition: 07:15 Disposition: [facility] Condition: Good Clinical Impression: Dislodged gastrostomy tube - Discharge Information *PRESCRIPTION DRUG MONITORING PROGRAM REVIEWED*: Not Applicable *COPY OF PRESCRIPTION DRUG MONITORING REPORT IN PATIENT SULEMA: Not Applicable Referrals: PCP,None [Primary Care Provider] - Forms: ED Department Discharge Additional Instructions: A 16-Sammarinese vazquez was placed. Use it for feedings as before. However, develop a strategy to keep patient from either intentionally or inadvertently pulling out the tube. The 16-Sammarinese feeding tube is not here, arriving later today. See Dr Hairston tomorrow to insert the 16-Sammarinese feeding tube. Sepsis Event Note (ED) - Evaluation Sepsis Screening Result: No Definite Risk - Focused Exam Vital Signs: Vital Signs Temp Pulse Resp BP 04/03/21 06:47 36.7 C 95 15 128/79
== END 2021-04-03 08:15 ==
LOC: FB.ED 06:39
DX: K94.23 Gastrostomy malfunction (principal); I11.0 Hypertensive heart disease with heart failure; I50.9 Heart failure, unspecified; E11.9 Type 2 diabetes mellitus without complications; Z79.84 Long term (current) use of oral hypoglycemic drugs; Z79.899 Other long term (current) drug therapy; Z88.0 Allergy status to penicillin; Z91.030 Bee allergy status; Z88.5 Allergy status to narcotic agent; Z91.048 Other nonmedicinal substance allergy status
CPT/HCPCS: 99283

== ENCOUNTER 2021-04-16 08:25 | Emergency (ER) | payer MEDICARE, MEDICAID ==
[2021-04-16] MEDS ORDERED: Ondansetron 4 MG Tab.DIS PO STA (09:12)
--- NOTE | 2021-04-16 10:23 | CR ---
INDICATION: Question aspiration. CHEST ONE VIEW: An AP upright view of the chest 04/16/21 was compared with 03/31/21. The heart is enlarged with interstitial changes and prominent upper lung field pulmonary vasculature compatible with CHF and interstitial lung edema. There appears to be infiltrate at the left lower lobe possibly with minimal pleuritis in that area. There are some stringy infiltrates in the left mid lung field and to a minimal extent on the right which may be related to CHF, although minimal aspiration pneumonia could also be present especially on the left. No other finding to strongly suggest acute disease was identified. MTDD
--- NOTE | 2021-04-16 10:28 | CR ---
ABDOMEN TWO-VIEW: Supine and decubitus views of the abdomen were obtained 04/16/21 and compared with 03/31/21. There is again noted evidence of surgery in the mid abdomen with a gastric feeding tube in place. A moderate amount of stool is noted again in the colon especially in the rectum which appears to be slightly dilated possibly with some inspissated stool in that area. No gross obstructive process was identified, although there are some air-fluid levels present which could represent paralytic ileus or even gastroenteritis. A definite mechanically obstructive process is not identified. No evidence of free air was identified. IMPRESSION: 1. Air-fluid levels most likely on the basis of a process such as paralytic ileus or gastroenteritis. A definite mechanically obstructive process is not identified. 2. Gastric feeding tube in place. 3. There is again noted some distention of the rectum possibly with a bolus of inspissated feces raising question of fecal impaction that is intermittent. This should be correlated clinically MTDD
--- NOTE | 2021-04-16 10:34 | EDM.PDOC ---
ED HPI GENERAL MEDICAL PROBLEM - General Chief Complaint: General Stated Complaint: NAUSEA,VOMITING Time Seen by Provider: 04/16/21 08:30 Source of Information: Reports: Patient History Limitations: Reports: No Limitations - History of Present Illness INITIAL COMMENTS - FREE TEXT/NARRATIVE: Patient presented to the ED because of nausea,vomiting and coughing after taking her medications. She also c/o abdominal pain initially but upon her arrival in the ED her pain is gone. There is no fever, chills, urinary symptoms or changes in bowel movements. - Related Data Allergies Allergy/AdvReac Type Severity Reaction Status Date / Time bee venom protein (honey bee) Allergy Cannot Verified 04/03/21 06:50 Remember penicillin G Allergy Other Verified 04/01/21 17:35 pollen extracts Allergy Cannot Verified 04/03/21 06:50 Remember tramadol Allergy Other Verified 04/01/21 17:35 Home Meds: Home Meds Acetaminophen with Codeine [Acetaminophen-Cod #3] 1 each PO QID 03/31/21 [History] Bisacodyl [Laxative Suppository] 10 mg RECTAL DAILY PRN 03/31/21 [History] Ciprofloxacin 500 mg GTUBE BID 10 Days #100 ml 03/31/21 [Rx] Docusate Sodium 100 mg GTUBE DAILY 03/31/21 [History] Furosemide 20 mg PO Q48H 03/31/21 [History] Furosemide 40 mg GTUBE Q48H 03/31/21 [History] Gabapentin 300 mg GTUBE TID 03/31/21 [History] Mag Hydrox/Aluminum Hyd/Simeth [Lian-Lanta Liquid] 10 ml PO ASDIRECTED PRN 03/31/21 [History] Menthol/Methyl Salicylate [Icy Hot] 1 dose TOP DAILY 03/31/21 [History] Nut.tx.gluc Intol,Lf,Soy/Fiber [Glucerna 1.2 Jose De Jesus Liquid] 55 ml GTUBE DAILY 03/31/21 [History] Warfarin [Coumadin] 1 tab PO DAILY 03/31/21 [History] atorvaSTATin [Lipitor] 40 mg GTUBE DAILY 03/31/21 [History] carvediloL [Carvedilol] 6.25 mg GTUBE BEDTIME 03/31/21 [History] carvediloL [Carvedilol] 12.5 mg GTUBE DAILY 03/31/21 [History] metFORMIN [Glucophage] 500 mg GTUBE DAILY 03/31/21 [History] polyethylene glycoL 3350 [MiraLAX] 17 gm GTUBE DAILY PRN 03/31/21 [History] ramipriL [Ramipril] 2.5 mg GTUBE DAILY 03/31/21 [History] levoFLOXacin [Levaquin] 750 mg PEGTUBE DAILY #7 tab 04/16/21 [Rx] Past Medical History - Past Health History Medical/Surgical History: Denies Medical/Surgical History HEENT History: Reports: Impaired Vision Other HEENT History: right eye Cardiovascular History: Reports: Heart Failure, High Cholesterol, Hypertension Gastrointestinal History: Reports: Other (See Below) Other Gastrointestinal History: Difficulty swallowing. PEG tube in place. Genitourinary History: Reports: Urinary Incontinence Neurological History: Reports: CVA Endocrine/Metabolic History: Reports: Diabetes, Type II - Past Surgical History GI Surgical History: Reports: Other (See Below) Musculoskeletal Surgical History: Reports: Shoulder Surgery Other Musculoskeletal Surgeries/Procedures:: rotator cuff surgery Social & Family History - Family History Family Medical History: No Pertinent Family History - Tobacco Use Tobacco Use Status *Q: Unknown Ever Used Tobacco - Caffeine Use Caffeine Use: Reports: None - Living Situation & Occupation Living situation: Reports: Extended Care Facility ([facility]) ED ROS GENERAL - Review of Systems Review Of Systems: See Below Constitutional: Reports: No Symptoms HEENT: Reports: No Symptoms Respiratory: Reports: Cough Cardiovascular: Reports: No Symptoms Endocrine: Reports: No Symptoms GI/Abdominal: Reports: Nausea, Vomiting Musculoskeletal: Reports: No Symptoms, Neck Pain Skin: Reports: No Symptoms, Cyanosis, Jaundice Neurological: Reports: No Symptoms Psychiatric: Reports: No Symptoms ED EXAM, GENERAL - Physical Exam Exam: See Below Exam Limited By: Intoxication General Appearance: Alert, No Apparent Distress Eye Exam: Bilateral Eye: PERRL Ears: Normal External Exam, Normal Canal Nose: Normal Inspection, Normal Mucosa, No Blood Throat/Mouth: Normal Inspection, Normal Lips, Normal Teeth, Normal Gums Head: Atraumatic, Normocephalic Neck: Normal Inspection, Supple, Non-Tender, Full Range of Motion Respiratory/Chest: No Respiratory Distress, Lungs Clear, Normal Breath Sounds, No Accessory Muscle Use, Chest Non-Tender Cardiovascular: Normal Peripheral Pulses, Regular Rate, Rhythm, No Edema, No Gallop, No JVD, No Murmur, No Rub GI/Abdominal: Normal Bowel Sounds, Soft, Non-Tender, No Organomegaly, No Distention, No Abnormal Bruit, No Mass Back Exam: Normal Inspection, Full Range of Motion Extremities: Normal Inspection, Normal Range of Motion, Non-Tender, No Pedal Edema, Normal Capillary Refill Neurological: Alert Psychiatric: Normal Affect Course - Vital Signs Text/Narrative:: Lab/CXR result was reviewed and discussed with patient NS 1 L bolus Zofran 4 mg IV x1 Last Recorded V/S: Last Vital Signs Temp 36.5 C 04/16/21 08:26 Pulse 105 H 04/16/21 11:49 Resp 18 04/16/21 11:49 BP 109/65 04/16/21 11:49 Pulse Ox 97 04/16/21 11:49 - Orders/Labs/Meds Labs: Laboratory Tests 04/16/21 04/16/21 04/16/21 Range/Units 09:20 09:20 09:20 WBC 8.1 (3.0-10.3) x10-3/uL RBC 4.27 (3.60-5.20) x10(6)uL Hgb 10.7 L (11.4-15.5) g/dL Hct 33.9 L (34.2-48.2) % MCV 79.3 (76.7-100.5) fL MCH 25.1 (23.9-33.9) pg MCHC 31.6 L (31.9-34.8) g/dL RDW 16.8 H (12.3-16.5) % Plt Count 535 H (151-488) x10(3)uL MPV 7.2 (7.1-12.4) fL Neut % (Auto) 84.0 H (30.8-76.2) % Lymph % (Auto) 10.0 L (18.4-52.1) % Newton % (Auto) 5.4 (4.4-15.7) % Eos % (Auto) 0.3 L (0.6-8.1) % Baso % (Auto) 0.3 (0.2-1.5) % Neut # (Auto) 6.8 H (1.5-6.3) x10-3/uL Lymph # (Auto) 0.8 L (1.0-4.4) x10-3/uL Newton # (Auto) 0.4 (0.3-1.0) x10-3/uL Eos # (Auto) 0.0 (0.0-0.8) x10-3/uL Baso # (Auto) 0.0 (0.0-0.1) x10-3/uL Sodium 131 L D (135-145) mmol/L Potassium 3.8 (3.5-5.3) mmol/L Chloride 96 L (100-110) mmol/L Carbon Dioxide 31 (21-32) mmol/L BUN 22 H (7-18) mg/dL Creatinine 0.8 (0.55-1.02) mg/dL Est Cr Clr Drug Dosing TNP Estimated GFR (MDRD) > 60 (>60) BUN/Creatinine Ratio 27.5 H (9-20) Glucose 159 H (80-116) mg/dL Calcium 9.3 (8.6-10.2) mg/dL Total Bilirubin 0.9 (0.1-1.3) mg/dL AST 33 H D (5-25) IU/L ALT 23 D (12-36) U/L Alkaline Phosphatase 120 H (56-112) IU/L Total Protein 7.3 (6.0-8.0) g/dL Albumin 2.5 L (3.2-4.6) g/dL Globulin 4.8 g/dL Albumin/Globulin Ratio 0.5 Amylase 35 (25-115) U/L Lipase 54 L (73-393) U/L Urine Color (YELLOW) Urine Appearance (CLEAR) Urine pH (5.0-6.5) Ur Specific [place] (1.010-1.025) Urine Protein (NEGATIVE) mg/dL Urine Glucose (UA) (NORMAL) mg/dL Urine Ketones (NEGATIVE) mg/dL Urine Occult Blood (NEGATIVE) Urine Nitrite (NEGATIVE) Urine Bilirubin (NEGATIVE) Urine Urobilinogen (NEGATIVE) mg/dL Ur Leukocyte Esterase (NEGATIVE) Urine WBC (0-5) Ur Squamous Epith Cells (NS,R,O) Amorphous Sediment Urine Bacteria (NS) 04/16/21 Range/Units 10:15 WBC (3.0-10.3) x10-3/uL RBC (3.60-5.20) x10(6)uL Hgb (11.4-15.5) g/dL Hct (34.2-48.2) % MCV (76.7-100.5) fL MCH (23.9-33.9) pg MCHC (31.9-34.8) g/dL RDW (12.3-16.5) % Plt Count (151-488) x10(3)uL MPV (7.1-12.4) fL Neut % (Auto) (30.8-76.2) % Lymph % (Auto) (18.4-52.1) % Newton % (Auto) (4.4-15.7) % Eos % (Auto) (0.6-8.1) % Baso % (Auto) (0.2-1.5) % Neut # (Auto) (1.5-6.3) x10-3/uL Lymph # (Auto) (1.0-4.4) x10-3/uL Newton # (Auto) (0.3-1.0) x10-3/uL Eos # (Auto) (0.0-0.8) x10-3/uL Baso # (Auto) (0.0-0.1) x10-3/uL Sodium (135-145) mmol/L Potassium (3.5-5.3) mmol/L Chloride (100-110) mmol/L Carbon Dioxide (21-32) mmol/L BUN (7-18) mg/dL Creatinine (0.55-1.02) mg/dL Est Cr Clr Drug Dosing Estimated GFR (MDRD) (>60) BUN/Creatinine Ratio (9-20) Glucose (80-116) mg/dL Calcium (8.6-10.2) mg/dL Total Bilirubin (0.1-1.3) mg/dL AST (5-25) IU/L ALT (12-36) U/L Alkaline Phosphatase (56-112) IU/L Total Protein (6.0-8.0) g/dL Albumin (3.2-4.6) g/dL Globulin g/dL Albumin/Globulin Ratio Amylase (25-115) U/L Lipase (73-393) U/L Urine Color Yellow (YELLOW) Urine Appearance Slightly cloudy (CLEAR) Urine pH 7.0 H (5.0-6.5) Ur Specific [place] 1.010 (1.010-1.025) Urine Protein Negative (NEGATIVE) mg/dL Urine Glucose (UA) Normal (NORMAL) mg/dL Urine Ketones Negative (NEGATIVE) mg/dL Urine Occult Blood Negative (NEGATIVE) Urine Nitrite Negative (NEGATIVE) Urine Bilirubin Negative (NEGATIVE) Urine Urobilinogen Normal (NEGATIVE) mg/dL Ur Leukocyte Esterase Negative (NEGATIVE) Urine WBC 0-5 (0-5) Ur Squamous Epith Cells Few H (NS,R,O) Amorphous Sediment Few Urine Bacteria Few H (NS) Meds: Medications Discontinued Medications Generic Name Dose Route Start Last Admin Trade Name Freq PRN Reason Stop Dose Admin Sodium Chloride 1,000 mls @ 999 mls/hr 04/16/21 10:45 04/16/21 10:55 Normal Saline IV 999 mls/hr ASDIRECTED [place] Administration Ondansetron HCl 4 mg 04/16/21 09:12 04/16/21 09:16 Ondansetron 4 Mg Tab.Dis PO 04/16/21 09:13 4 mg NOW STA Administration Departure - Departure Time of Disposition: 11:05 Disposition: Home, Self-Care 01 Condition: Good Clinical Impression: Dehydration, Aspiration pneumonia - Discharge Information Prescriptions: levoFLOXacin [Levaquin] 750 mg PEGTUBE DAILY #7 tab Instructions: Dehydration, Elderly, [id number], Aspiration Pneumonia Referrals: Marisol Izquierdo PA-C [Primary Care Provider] - Forms: ED Department Discharge Additional Instructions: Please read discharge instructions on dehydration and pneumonia Levaquin 750 mg daily for 7 days Follow up as needed Sepsis Event Note (ED) - Evaluation Sepsis Screening Result: No Definite Risk - Focused Exam Vital Signs: Vital Signs Temp Pulse Resp BP Pulse Ox 04/16/21 11:49 105 H 18 109/65 97 04/16/21 08:26 36.5 C 104 H 16 134/93 H 97
[2021-04-16] MEDS ORDERED: Sodium Chloride 0.9% 1,000 ML IV SCH (10:45)
== END 2021-04-16 12:00 | disposition home or self-care (01) ==
LOC: FB.ED 08:25
DX: J69.0 Pneumonitis due to inhalation of food and vomit (principal); E86.0 Dehydration; I11.0 Hypertensive heart disease with heart failure; I50.9 Heart failure, unspecified; E78.00 Pure hypercholesterolemia, unspecified; E11.9 Type 2 diabetes mellitus without complications; Z86.73 Personal history of transient ischemic attack (TIA), and cerebral infarction without residual deficits; Z79.899 Other long term (current) drug therapy; Z88.0 Allergy status to penicillin; Z91.030 Bee allergy status; Z88.5 Allergy status to narcotic agent
CPT/HCPCS: 36415; 71045; 74019; 80053; 81001; 82150; 83690; 85025; 99284; A9270; J7030

== ENCOUNTER 2021-04-26 12:04 | Emergency (ER) | payer MEDICARE, MEDICAID ==
--- NOTE | 2021-04-26 12:31 | EDM.PDOC ---
ED HPI GENERAL MEDICAL PROBLEM - General Stated Complaint: G TUBE Time Seen by Provider: 04/26/21 12:05 Source of Information: Reports: Patient, Old Records - History of Present Illness INITIAL COMMENTS - FREE TEXT/NARRATIVE: 75-year-old lady with past medical history significant for left-sided hemiaplasia and hemiparesis secondary to stroke was sent to the emergency department by [facility] due to difficulties with her GI tube. Staff noticed that her GI tube was loose this morning and while trying to adjust the tube for feeding, the feeding tube fell out. They report that the patient is in good health with stable vital signs. Patient denies any current pain and has no current complaints including no chest pain, abdominal pain, shortness of breath. - Related Data Allergies Allergy/AdvReac Type Severity Reaction Status Date / Time bee venom protein (honey bee) Allergy Cannot Verified 04/03/21 06:50 Remember penicillin G Allergy Other Verified 04/01/21 17:35 pollen extracts Allergy Cannot Verified 04/03/21 06:50 Remember tramadol Allergy Other Verified 04/01/21 17:35 Home Meds: Home Meds Acetaminophen with Codeine [Acetaminophen-Cod #3] 1 each PO QID 03/31/21 [History] Bisacodyl [Laxative Suppository] 10 mg RECTAL DAILY PRN 03/31/21 [History] Ciprofloxacin 500 mg GTUBE BID 10 Days #100 ml 03/31/21 [Rx] Docusate Sodium 100 mg GTUBE DAILY 03/31/21 [History] Furosemide 20 mg PO Q48H 03/31/21 [History] Furosemide 40 mg GTUBE Q48H 03/31/21 [History] Gabapentin 300 mg GTUBE TID 03/31/21 [History] Mag Hydrox/Aluminum Hyd/Simeth [Lian-Lanta Liquid] 10 ml PO ASDIRECTED PRN 03/31/21 [History] Menthol/Methyl Salicylate [Icy Hot] 1 dose TOP DAILY 03/31/21 [History] Nut.tx.gluc Intol,Lf,Soy/Fiber [Glucerna 1.2 Jose De Jesus Liquid] 55 ml GTUBE DAILY 03/31/21 [History] Warfarin [Coumadin] 1 tab PO DAILY 03/31/21 [History] atorvaSTATin [Lipitor] 40 mg GTUBE DAILY 03/31/21 [History] carvediloL [Carvedilol] 6.25 mg GTUBE BEDTIME 03/31/21 [History] carvediloL [Carvedilol] 12.5 mg GTUBE DAILY 03/31/21 [History] metFORMIN [Glucophage] 500 mg GTUBE DAILY 03/31/21 [History] polyethylene glycoL 3350 [MiraLAX] 17 gm GTUBE DAILY PRN 03/31/21 [History] ramipriL [Ramipril] 2.5 mg GTUBE DAILY 03/31/21 [History] levoFLOXacin [Levaquin] 750 mg PEGTUBE DAILY #7 tab 04/16/21 [Rx] Past Medical History - Past Health History Medical/Surgical History: Denies Medical/Surgical History HEENT History: Reports: Impaired Vision Other HEENT History: right eye Cardiovascular History: Reports: Heart Failure, High Cholesterol, Hypertension Gastrointestinal History: Reports: Other (See Below) Other Gastrointestinal History: Difficulty swallowing. PEG tube in place. Genitourinary History: Reports: Urinary Incontinence Neurological History: Reports: CVA Endocrine/Metabolic History: Reports: Diabetes, Type II - Past Surgical History GI Surgical History: Reports: Other (See Below) Musculoskeletal Surgical History: Reports: Shoulder Surgery Other Musculoskeletal Surgeries/Procedures:: rotator cuff surgery Social & Family History - Family History Family Medical History: No Pertinent Family History - Caffeine Use Caffeine Use: Reports: None - Living Situation & Occupation Living situation: Reports: Extended Care Facility ([facility]) ED ROS GENERAL - Review of Systems Review Of Systems: See Below Constitutional: Reports: No Symptoms HEENT: Reports: Eye Discharge Respiratory: Reports: No Symptoms Cardiovascular: Reports: No Symptoms Endocrine: Reports: No Symptoms GI/Abdominal: Reports: Other (GI tube fell out) : Reports: No Symptoms Musculoskeletal: Reports: No Symptoms Skin: Reports: No Symptoms Neurological: Reports: Numbness, Paresthesia, Pre-Existing Deficit, Tingling, Tr ouble Speaking, Weakness, Gait Disturbance Psychiatric: Reports: No Symptoms Hematologic/Lymphatic: Reports: No Symptoms Immunologic: Reports: No Symptoms ED EXAM, GI/ABD - Physical Exam Exam: See Below Exam Limited By: Other (Patient is essentially nonverbal but does answer questions appropriately with sounds) General Appearance: Alert, No Apparent Distress Respiratory/Chest: No Respiratory Distress, Lungs Clear Cardiovascular: Regular Rate, Rhythm GI/Abdominal Exam: Normal Bowel Sounds, Soft, Non-Tender, Other (Ostium for the GI tube shows mild erythema, no obvious edema, no purulent discharge) Extremities: Pedal Edema Neurological: Alert, Slow to Respond, Other (Baseline status post stroke with left-sided hemiplegia and hemiparesis) Psychiatric: Flat Affect Skin Exam: Warm, Dry Course - Vital Signs Text/Narrative:: Review of medical record shows that prior G-tube was placed using 16 Sudanese tube with approximately 20 mL of water in the balloon. A new 16 Sudanese G-tube was placed in the patient's ostium and approximately 18 mL of water use deflate the balloon. The patient had a small amount of pain at the 18 mL level so I stopped at 18 mL. I tested for integrity and the tube was secured. A 10 mL flush was used to verify integrity and was easy to flush. The tube was placed at approximately 4.8 cm. The ostium was was surrounded with gauze under the neck of the tube. The patient tolerated the procedure well. There was no bleeding or discharge. Departure - Departure Time of Disposition: 13:21 Disposition: DC[facility] to [facility] Clinical Impression: Gastrostomy tube dysfunction - Discharge Information *PRESCRIPTION DRUG MONITORING PROGRAM REVIEWED*: Not Applicable *COPY OF PRESCRIPTION DRUG MONITORING REPORT IN PATIENT SULEMA: Not Applicable
== END 2021-04-26 13:35 ==
LOC: FB.ED 12:04
DX: K94.23 Gastrostomy malfunction (principal); I11.0 Hypertensive heart disease with heart failure; I50.9 Heart failure, unspecified; E78.00 Pure hypercholesterolemia, unspecified; E11.9 Type 2 diabetes mellitus without complications; Z86.73 Personal history of transient ischemic attack (TIA), and cerebral infarction without residual deficits; Z79.84 Long term (current) use of oral hypoglycemic drugs; Z79.899 Other long term (current) drug therapy; Z88.0 Allergy status to penicillin; Z91.030 Bee allergy status; Z88.5 Allergy status to narcotic agent; Z91.09 Other allergy status, other than to drugs and biological substances
CPT/HCPCS: 43762; 99284-25